=== PATIENT | female | born 1960 | race Caucasian/White ===

== ENCOUNTER 2017-05-05 22:42 | Inpatient (IN) | payer OTHER ==
[~2017-05-05] VITALS: Ht 160 cm; Wt 51.3 kg
[~2017-05-05 22:42] MED LIST: ACET325T96 PO; ALBUAER2 INH; CLON0.5T3 PO; CYAN3INJ IM; FRRS300 PO; GLUCTAB7 PO; IPRA1AER2 INH; MULTTAB58 PO; OMEGCAP2 PO; ONDA8TAB6 PO; PANT40TA PO; SERT-234 PO; SNQ/25 PO; TRAM-10 PO; ZOLE5INJ
--- NOTE | 2017-05-05 23:20 | EMERGENCY ROOM VISIT NOTE ---
History Report prepared by Lobito: Britt Rogers Under the Supervision of: Dr. Daniele Barrera M.D. First contact with patient: 22:58 Chief Complaint: WEAKNESS Stated Complaint: WEAKNESS,BRUISING,LIGHT-HEADED,HEADACHE,ANEMIA History of Present Illness The patient is a 57 year old female who presents to the Emergency Room with complaints of worsening weakness starting two weeks ago. The patient reports that in the past she has had extremely low hemoglobin that required blood transfusions and iron transfusions. She complains of chills, loss appetite, shortness of breath, and a headache. The patient denies fevers, hematochezia, melena, urinary symptoms, and recent falls or injuries. She notes that they are unsure why her hemoglobin is so low. She currently rates her pain as a 5/10 in severity. Source of History: patient Onset: two weeks ago Position: other (global) Symptom Intensity: 5/10 Quality: other (global) Timing: worsening Associated Symptoms: + chills, + headache, + SOB, No fevers, No melena, No hematochezia, No urinary symptoms Note: The patient complains of loss of appetite. The patient denies any recent falls or injuries. Review of Systems See HPI for pertinent positives & negatives. A total of 10 systems reviewed and were otherwise negative. Past Medical & Surgical Medical Problems: (1) Anxiety (2) BODY MASS INDEX LESS THAN 19, ADULT (3) CHR BLOOD LOSS ANEMIA (4) CHR PEPTIC ULC W HEM-OBS (5) COPD (chronic obstructive pulmonary disease) (6) Depression (7) Gastrostomy (8) jejunostomy (9) OBSTRUCTIVE CHRONIC BRONCHITIS WITH ACUTE BRONCHITIS (10) PNEUMONIA, ORGANISM NOS Family History Patient reports no known family medical history. Social History Smoking Status: Current Every Day Smoker Alcohol Use: none Drug Use: none Marital Status: Housing Status: lives alone Occupation Status: employed Current/Historical Medications Scheduled Albuterol Hfa (Ventolin Hfa), 2-4 PUFFS INH Q6H Vevjmuilgtj-Kaurtqswync-Uwv C- (Glucosamine Chondroitin), 500 MG PO DAILY Ipratropium-Albuterol (Combivent Respimat), 1 PUFFS INH QID Multiple Vitamin (Multivitamin), 1 TAB PO DAILY [place]-3 Fatty Acids (Fish Oil), 1 CAP PO DAILY Scheduled PRN Acetaminophen Tab (Tylenol), 650 MG PO Q6 PRN for Pain Tramadol (Ultram), 50 MG PO TID PRN for Pain Allergies Coded Allergies: Ibuprofen (Verified Allergy, Severe, stomach ulcers, 05/06/17) Physical Exam Vital Signs Date Time Temp Pulse Resp B/P (MAP) Pulse Ox O2 Delivery O2 Flow Rate FiO2 05/06/17 00:42 36.7 97 20 160/95 98 05/06/17 00:30 98 16 167/86 98 05/05/17 23:36 98 05/05/17 23:32 99 16 178/87 99 Room Air 05/05/17 22:49 36.5 115 20 168/61 100 Room Air Physical Exam GENERAL: Patient is chronically unwell appearing. She appears pale and cachectic. The patient is minimal distress. HEENT: No acute trauma, normocephalic atraumatic, mucous membranes moist, no nasal congestion, no scleral icterus. Pale conjunctiva. NECK: No stridor, no adenopathy, no meningismus, trachea is midline. LUNGS: No dyspnea. Clear to auscultation and equal bilaterally. No wheeze, no rhonchi. HEART: Tachycardic rate and regular rhythm. No murmurs, rubs, gallops appreciated. ABDOMEN: Soft, nontender, bowel sounds positive, no masses appreciated, no peritonitis. BACK: No midline tenderness, no CVA tenderness EXTREMITIES: Normal motion all extremities, no cyanosis, no edema. Mild superficial bruising of the arms. NEUROLOGIC: Alert and oriented, no acute motor or sensory deficits, no focal weakness, cranial nerves grossly intact. SKIN: No rash, no jaundice, no diaphoresis. Bruising bilaterally on buttocks. Medical Decision & Procedures Laboratory Results 05/05/17 23:10 Red Blood Count 2.37, Mean Corpuscular Volume 79.3, Mean Corpuscular Hemoglobin 21.9, Mean Corpuscular Hemoglobin Concent 27.7, Mean Platelet Volume 8.8, Neutrophils (%) (Auto) 69.8, Lymphocytes (%) (Auto) 16.7, Monocytes (%) (Auto) 11.6, Eosinophils (%) (Auto) 0.7, Basophils (%) (Auto) 1.1, Neutrophils # (Auto ) 4.98, Lymphocytes # (Auto) 1.19, Monocytes # (Auto) 0.83, Eosinophils # (Auto ) 0.05, Basophils # (Auto) 0.08 05/05/17 23:10 Test 05/05/17 23:10 05/05/17 23:18 05/06/17 00:48 White Blood Count 7.14 K/uL (4.8-10.8) Red Blood Count 2.37 M/uL (4.2-5.4) Hemoglobin 5.2 g/dL (12.0-16.0) Hematocrit 18.8 % (37-47) Mean Corpuscular Volume 79.3 fL (80-100) Mean Corpuscular Hemoglobin 21.9 pg (25-34) Mean Corpuscular Hemoglobin Concent 27.7 g/dl (32-36) Platelet Count 656 K/uL (130-400) Mean Platelet Volume 8.8 fL (7.4-10.4) Neutrophils (%) (Auto) 69.8 % Lymphocytes (%) (Auto) 16.7 % Monocytes (%) (Auto) 11.6 % Eosinophils (%) (Auto) 0.7 % Basophils (%) (Auto) 1.1 % Neutrophils # (Auto) 4.98 K/uL (1.4-6.5) Lymphocytes # (Auto) 1.19 K/uL (1.2-3.4) Monocytes # (Auto) 0.83 K/uL (0.11-0.59) Eosinophils # (Auto) 0.05 K/uL (0-0.5) Basophils # (Auto) 0.08 K/uL (0-0.2) RDW Standard Deviation 81.7 fL (36.4-46.3) RDW Coefficient of Variation 29.1 % (11.5-14.5) Immature Granulocyte % (Auto) 0.1 % Immature Granulocyte # (Auto) 0.01 K/uL (0.00-0.02) Nucleated RBC Absolute Count (auto) 0.15 K/uL (0-0) Nucleated Red Blood Cells % 2.1 % Hypersegmented Polys 2+ Hypochromasia PRESENT Anisocytosis PRESENT Tear Drop Cells 1+ Ovalocytes 1+ Prothrombin Time 11.9 SECONDS (9.0-12.0) Prothromb Time International Ratio 1.1 (0.9-1.1) Activated Partial Thromboplast Time 26.7 SECONDS (21.0-31.0) Partial Thromboplastin Ratio 1.0 Est Creatinine Clear Calc Drug Dose 46.0 ml/min Estimated GFR () 65.5 Estimated GFR (Non- 56.5 BUN/Creatinine Ratio 15.3 (10-20) Calcium Level 8.9 mg/dl (8.5-10.1) Magnesium Level 2.1 mg/dl (1.8-2.4) Total Bilirubin 0.3 mg/dl (0.2-1) Direct Bilirubin 0.1 mg/dl (0-0.2) Aspartate Amino Transf (AST/SGOT) 19 U/L (15-37) Alanine Aminotransferase (ALT/SGPT) 18 U/L (12-78) Alkaline Phosphatase 101 U/L (45-117) Troponin I < 0.015 ng/ml (0-0.045) Total Protein 8.5 gm/dl (6.4-8.2) Albumin 4.5 gm/dl (3.4-5.0) Thyroid Stimulating Hormone (TSH) 0.484 uIu/ml (0.300-4.500) Bedside Hemoglobin 7.1 g/dl (12.0-16.0) Bedside Hematocrit 21 % (37-47) Bedside Sodium 138 mEq/L (135-144) Bedside Potassium 3.6 mEq/L (3.3-5.0) Bedside Chloride 112 mEq/L (101-112) Bedside Total CO2 14 mEq/l (24-31) Anion Gap 17.0 mmol/L (16-25) Bedside Blood Urea Nitrogen 16 mg/dl (7-18) Bedside Creatinine 1.2 mg/dl (0.6-1.3) Bedside Glucose (other) 108 mg/dl (70-99) Bedside Ionized Calcium (Jam) 1.22 mmol/l (1.12-1.32) Laboratory results as reviewed by me. Medications Administered Medications (Trade) Dose Ordered Sig/Shelly Route Start Time Stop Time Status Last Admin Dose Admin Acetaminophen (Tylenol Tab) 1,000 mg NOW STAT PO 05/06/17 00:21 05/06/17 00:22 DC 05/06/17 00:32 1,000 MG Procedure RECTAL EXAM: Brown, hem negative regular stool upon exam. ECG Indication: weakness Rate (beats per minute): 97 Rhythm: sinus tachycardia Findings: nonspecific-ST abn, no ectopy, other (no STEMI, QTc 452) ED Course 225: The patient was evaluated in room B10. A complete history and physical exam was performed. 2338: Ordered Pantoprazole Sodium 1 ea IV. 2340: I performed a rectal exam and reevaluated the patient. She is okay. I discussed the need to be further evaluated and she agrees. 2350: Discussed the patient's case with Dr. Quinn. The patient will be evaluated for further treatment and disposition. Medical Decision Differential: Sepsis, Infectious (UTI/Pneumonia/Meningitis/etc), Metabolic/ Electrolyte Abnormality, Cardiac, Hepatic, Endocrine, Toxicologic, Neurologic, amongst other pathologies entertained. 57 yr old female with history of severe PUD with extensive gastric/small bowel resection several years ago arrives with complaint of generalized weakness over the last few weeks. Tachycardic and unwell appearing though in no severe distress. EKG without acute ischemia and Trop looking OK. She is severely anemic and with tachycardia and weakness I felt emergent transfusion necessary thus 2 U PRBC ordered. Bicarb significantly low without clear reason though may just be from anemia. VBG ordered and pending when signed over to hospitalist team. BG OK and otherwise no clear evidence of infection. Headache which she notes is chronic. Bedside Hemoccult is negative for blood thus will hold on Protonix which was initially ordered given her history. This may all be vitamin/iron deficiency. She has no peritonitis nor other places of bleeding evidence. Medication Reconcilliation Current Medication List: was personally reviewed by sc Blood Pressure Screening Patient's blood pressure: Elevated blood pressure Hypertension will be managed by a hospitalist. Consults Time Called: [phone] Consulting Physician: Dr. Quinn Returned Call: [phone] Discussed the patient's case with Dr. Quinn. The patient will be evaluated for further treatment and disposition. Impression Primary Impression: Anemia Critical Care I have personally spent greater than 35 minutes of critical care time in the direct management of this patient. This was a life/limb threatening event. This includes time spent evaluating patient, direct bedside care, chart review, placing orders, interpretation of diagnostic studies, discussion with consultants, patient, and family members, as well as other required patient management activities. This 35 minutes is in excess of all separately billable procedures. Scribe Attestation The scribe's documentation has been prepared under my direction and personally reviewed by me in its entirety. I confirm that the note above accurately reflects all work, treatment, procedures, and medical decision making performed by me. Departure Information Dispostion Being Evaluated By Hospitalist Prescriptions Ipratropium-Albuterol (COMBIVENT RESPIMAT) 1 Aer Aer 1 PUFFS INH QID, #1 INH Prov: Werner Fairchild MD 05/06/17 Albuterol Hfa (VENTOLIN HFA) 200 Puffs/17242 Mcg Aers 2-4 PUFFS INH Q6H, #1 INHALER Prov: Werner Fairchild MD 05/06/17 Referrals No Doctor, Assigned (PCP) Patient Instructions My [facility]
[2017-05-05 23:32] LABS: ISTAT CREATININE 1.2 mg/dl (0.6-1.3); ISTAT HEMOGLOBIN 7.1 g/dl (12.0-16.0); ISTAT IONIZED CALCIUM 1.22 mmol/l (1.12-1.32)
[2017-05-05 23:37] LABS: INR 1.1 (0.9-1.1); PROTHROMBIN TIME (PATIENT) 11.9 SECONDS (9.0-12.0)
[2017-05-05 23:39] LABS: HEMATOCRIT 18.8 % (37-47); MEAN CELL VOLUME 79.3 fL (80-100); MEAN CORPUSCULAR HEMOGLOBIN 21.9 pg (25-34); MEAN CORPUSCULAR HGB CONC 27.7 g/dl (32-36); PLATELET COUNT 656 K/uL (130-400); RED BLOOD COUNT 2.37 M/uL (4.2-5.4); WHITE BLOOD COUNT 7.14 K/uL (4.8-10.8)
[2017-05-05 23:50] LABS: ALT/SGPT 18 U/L (12-78); BLOOD UREA NITROGEN 17 mg/dl (7-18); BUN/CREATININE RATIO 15.3 (10-20); CALCIUM 8.9 mg/dl (8.5-10.1); CARBON DIOXIDE 15 mmol/L (21-32); CHLORIDE 109 mmol/L (98-107); GLUCOSE 106 mg/dl (70-99); MAGNESIUM 2.1 mg/dl (1.8-2.4); POTASSIUM 3.5 mmol/L (3.5-5.1); SODIUM 138 mmol/L (136-145)
[2017-05-06] VITALS (24 sets, daily range): BP systolic 119–184; BP diastolic 57–95; PULSE 82–97; TEMP 36.4–37; O2SAT 95–100; Ht 160 cm; Wt 51.3 kg
[2017-05-06 00:01] LABS: ALKALINE PHOSPHATASE 101 U/L (45-117); AST/SGOT 19 U/L (15-37); THYROID STIMULATING HORMONE 0.484 uIu/ml (0.300-4.500)
[2017-05-06 00:04] LABS: MEAN PLATELET VOLUME 8.8 fL (7.4-10.4)
[2017-05-06 00:07] LABS: ANISOCYTOSIS PRESENT; BASO % 1.1 %; BASO ABS # 0.08 K/uL (0-0.2); COMPLETE YES; EOS % 0.7 %; HYPERSEGMENTED POLYS 2+; HYPOCHROMIA PRESENT; IG% 0.1 %; LYMPH % 16.7 %; LYMPH ABS # 1.19 K/uL (1.2-3.4); MONO % 11.6 %; NEUT % 69.8 %; OVALOCYTES 1+; TEAR DROP CELLS 1+
[2017-05-06] MEDS ORDERED: ACETAMINOPHEN 500 MG TAB PO STA (00:21)
[2017-05-06] MEDS ORDERED: VNTHFA/IN INH (00:27)
[2017-05-06] MEDS ORDERED: IPRA1AER2 INH (00:27)
--- NOTE | 2017-05-06 00:31 | History and Physical ---
History & Physical Date & Time of Service: May 06, 2017 at 00:17 Chief Complaint: Weakness,Bruising,Light-Headed,Headache,Anemia Primary Care Physician: No Doctor, Assigned History of Present Illness Source: patient The patient is a 57 year old female with a history of partial gastrectomy who presents with weakness and generalized malaise x 1 month. The patient notes that for the past 1 month, she has been walking1 mile to work and needs to stop 4 times to catch her breath. Prior to 1 month ago, she tolerated this walk without difficulty. Symptoms are progressively getting worse. Feels weak, she notes that she bruises easily. No falls or syncope. Patient also states that she has had a poor appetite and nausea. Has had occasional vomiting. The patient states that she has a headache but otherwise denies any pain elsewhere. She denies palpitations, wheezing or coughing. Patient had a gastric bypass surgery 5 years ago at [facility] (Dr. Katz) due to extensive gastric ulceration. Notes that since then she has had persistent hemoglobin issues and states that she feels when her hemoglobin is low. The patient states that she had tried iron infusions with Dr. Mitchell 2 years ago, which she states kept her symptoms at bay. She stopped because she lived far from infusion centre and logistically was difficult to do. States that she does not take iron tablets because they make her constipated. Nutritionally, the patient states that she eats minimal red meat. She denies any rectal bleeding. She denies blood in her urine. No hemoptysis or hematemesis. She denies abdominal or back pain. She denies fevers, chills or nightsweats. Past Medical/Surgical History Medical Problems: (1) Anxiety Status: Chronic (2) BODY MASS INDEX LESS THAN 19, ADULT Status: Chronic (3) CHR BLOOD LOSS ANEMIA Status: Chronic (4) CHR PEPTIC ULC W HEM-OBS Status: Resolved (5) Depression Status: Chronic (6) Gastrostomy Status: Resolved (7) jejunostomy Status: Resolved (8) OBSTRUCTIVE CHRONIC BRONCHITIS WITH ACUTE BRONCHITIS Status: Chronic (9) PNEUMONIA, ORGANISM NOS Status: Resolved Family History Patient reports no known family medical history. Social History Smoking Status: Current Every Day Smoker Smokeless Tobacco Use: No Alcohol Use: none Drug Use: none Marital Status: Housing status: lives alone Occupational Status: employed Immunizations History of Influenza Vaccine: Yes History of Tetanus Vaccine?: No History of Pneumococcal: Yes Pneumococcal Date: Nov 06, 2012 History of Hepatitis B Vaccine: No Multi-Drug Resistant Organisms History of MDRO: No Allergies Coded Allergies: Ibuprofen (Verified Allergy, Severe, stomach ulcers, 05/06/17) Home Medications Scheduled Albuterol Hfa (Ventolin Hfa), 2-4 PUFFS INH Q6H Jywyqlrjvvz-Yuleeipijea-Ztf C- (Glucosamine Chondroitin), 500 MG PO DAILY Ipratropium-Albuterol (Combivent Respimat), 1 PUFFS INH QID Multiple Vitamin (Multivitamin), 1 TAB PO DAILY [place]-3 Fatty Acids (Fish Oil), 1 CAP PO DAILY Scheduled PRN Acetaminophen Tab (Tylenol), 650 MG PO Q6 PRN for Pain Tramadol (Ultram), 50 MG PO TID PRN for Pain Review of Systems A 10 point review of systems was negative unless stated above. Physical Exam Vital Signs Date Time Temp Pulse Resp B/P (MAP) Pulse Ox O2 Delivery O2 Flow Rate FiO2 05/05/17 23:36 98 05/05/17 23:32 99 16 178/87 99 Room Air 05/05/17 22:49 36.5 115 20 168/61 100 Room Air General Appearance: WD/WN, no apparent distress, + thin Head: normocephalic, atraumatic Eyes: normal inspection, EOMI ENT: hearing grossly normal, pharynx normal, + pertinent finding (poor dentition) Neck: supple, no adenopathy, no JVD Respiratory/Chest: lungs clear, no respiratory distress Cardiovascular: no gallop, no murmur, + tachycardia Abdomen/GI: normal bowel sounds, non tender, soft, + pertinent finding (well healed gastrectomy scar) Back: no CVA tenderness, no muscle spasm Extremities/Musculoskelatal: no calf tenderness, no pedal edema Neurologic/Psych: alert, normal mood/affect, oriented x 3 Skin: normal color, warm/dry, no rash Lymphatic: no adenopathy Diagnostics Laboratory Results Results Past 24 Hours Test 05/05/17 23:10 05/05/17 23:18 05/06/17 00:02 Range/Units White Blood Count 7.14 4.8-10.8 K/uL Red Blood Count 2.37 4.2-5.4 M/uL Hemoglobin 5.2 12.0-16.0 g/dL Hematocrit 18.8 37-47 % Mean Corpuscular Volume 79.3 80-100 fL Mean Corpuscular Hemoglobin 21.9 25-34 pg Mean Corpuscular Hemoglobin Concent 27.7 32-36 g/dl Platelet Count 656 130-400 K/uL Mean Platelet Volume 8.8 7.4-10.4 fL Neutrophils (%) (Auto) 69.8 % Lymphocytes (%) (Auto) 16.7 % Monocytes (%) (Auto) 11.6 % Eosinophils (%) (Auto) 0.7 % Basophils (%) (Auto) 1.1 % Neutrophils # (Auto) 4.98 1.4-6.5 K/uL Lymphocytes # (Auto) 1.19 1.2-3.4 K/uL Monocytes # (Auto) 0.83 0.11-0.59 K/uL Eosinophils # (Auto) 0.05 0-0.5 K/uL Basophils # (Auto) 0.08 0-0.2 K/uL RDW Standard Deviation 81.7 36.4-46.3 fL RDW Coefficient of Variation 29.1 11.5-14.5 % Immature Granulocyte % (Auto) 0.1 % Immature Granulocyte # (Auto) 0.01 0.00-0.02 K/uL Nucleated RBC Absolute Count (auto) 0.15 0-0 K/uL Nucleated Red Blood Cells % 2.1 % Hypersegmented Polys 2+ Hypochromasia PRESENT Anisocytosis PRESENT Tear Drop Cells 1+ Ovalocytes 1+ Prothrombin Time 11.9 9.0-12.0 SECONDS Prothromb Time International Ratio 1.1 0.9-1.1 Activated Partial Thromboplast Time 26.7 21.0-31.0 SECONDS Partial Thromboplastin Ratio 1.0 Sodium Level 138 136-145 mmol/L Potassium Level 3.5 3.5-5.1 mmol/L Chloride Level 109 98-107 mmol/L Carbon Dioxide Level 15 21-32 mmol/L Anion Gap 14.0 17.0 16-25 mmol/L Blood Urea Nitrogen 17 7-18 mg/dl Creatinine 1.10 0.60-1.20 mg/dl Est Creatinine Clear Calc Drug Dose 46.0 ml/min Estimated GFR () 65.5 Estimated GFR (Non- 56.5 BUN/Creatinine Ratio 15.3 10-20 Random Glucose 106 70-99 mg/dl Calcium Level 8.9 8.5-10.1 mg/dl Magnesium Level 2.1 1.8-2.4 mg/dl Total Bilirubin 0.3 0.2-1 mg/dl Direct Bilirubin 0.1 0-0.2 mg/dl Aspartate Amino Transf (AST/SGOT) 19 15-37 U/L Alanine Aminotransferase (ALT/SGPT) 18 12-78 U/L Alkaline Phosphatase 101 45-117 U/L Troponin I < 0.015 0-0.045 ng/ml Total Protein 8.5 6.4-8.2 gm/dl Albumin 4.5 3.4-5.0 gm/dl Thyroid Stimulating Hormone (TSH) 0.484 0.300-4.500 uIu/ml Bedside Hemoglobin 7.1 12.0-16.0 g/dl Bedside Hematocrit 21 37-47 % Bedside Sodium 138 135-144 mEq/L Bedside Potassium 3.6 3.3-5.0 mEq/L Bedside Chloride 112 101-112 mEq/L Bedside Total CO2 14 24-31 mEq/l Bedside Blood Urea Nitrogen 16 7-18 mg/dl Bedside Creatinine 1.2 0.6-1.3 mg/dl Bedside Glucose (other) 108 70-99 mg/dl Bedside Ionized Calcium (Jam) 1.22 1.12-1.32 mmol/l Impression Assessment and Plan 57 year old female with profound anemia on a background of gastrectomy and history of iron deficiency anemia, previously on iron infusions. Hemoccult in the ER was negative. She has no focal sources of bleeding based on history and examination. Plan is as follows: Microcytic Anemia - Suspect 2/2 low iron Repeat iron studies Will start empiric PO iron supplementation TID - Consult Heme/Onc for recommendations on need to IV iron infusions - Will also check B12 and Folic acid levels given history of low meat intake - Hemoccult negative; focal history of bleeding source - Normal bilirubin; hemolysis unlikely - 1 unit transfusing now; repeat CBC after transfusion Trend CBC q 6 hours x 2 ; further monitoring at discretion of day team COPD - Continue Ventolin PRN - Combivent QID History of Gastrectomy - Low residue diet - No NSAIDs DVT prophylaxis - SCD, GREGORY - Pharmacological anticoagulation contra-indicated due to low hemoglobin Code Status - Level I Full Code Disposition - Telemetry Resident Physician Supervision Note: I was present with Dr. Johnson during the history and exam. I discussed the case with the resident and agree with the findings and plan as documented in the note. Any exceptions or clarifications are listed here: 57 y/o F Hx gastric bypass - presents with weakness and light-headedness Pt is guiac- on admission and does not report blood loss - marked anemia on initial labs OE AAO x 3 S1,2 R CTAB NT, ND P: Deficiencies suspected to be nutritional related to malabsorption - she has been noncompliant with iron Transfused - consider D/C if stable and deficiencies confirmed Documented By: Enzo Quinn Level of Care Telemetry Resuscitation Status FULL RESUSCITATION VTE Prophylaxis Given or contraindicated: Contraindicated
[2017-05-06] MEDS ORDERED: ALUMINUM/MAGNESIUM/SIMETH (MAALOX MAX) 30 ML UDC PO PRN (00:45)
[2017-05-06] MEDS ORDERED: ONDANSETRON INJ 2 MG/ML 2 ML VIAL IV PRN (00:45)
[2017-05-06] MEDS ORDERED: POLYETHYLENE (MIRALAX) 17 GM PACK PO PRN (00:45)
[2017-05-06] MEDS ORDERED: ACETAMINOPHEN 325 MG TAB PO PRN (00:45)
[2017-05-06] MEDS ORDERED: MAGNESIUM HYDROXIDE SUSP 30 ML UDC PO PRN (00:45)
[2017-05-06] MEDS ORDERED: ALBUTEROL HFA 8 GM INHALER INH PRN (00:45)
[2017-05-06] MEDS ORDERED: FERROUS SULFATE 325 MG TAB PO ONE (01:01)
[2017-05-06] MEDS ORDERED: NICOTINE 14 MG/24 HR TDSY TD ONE (01:05)
[2017-05-06 01:50] LABS: FERRITIN 2.3 ng/ml (8.0-388.0); TOTAL IRON BINDING CAPACITY 688 mcg/dl (250-450)
[2017-05-06 01:54] LABS: VENOUS BLOOD GAS PCO2 26 mmHg (38.0-50.0); VENOUS BLOOD GAS PO2 59 mmHg
[2017-05-06] MEDS: TRAMADOL HCL 50 MG TAB PO PRN ×2 (02:19→09:34)
[2017-05-06] MEDS: ACETAMINOPHEN 325 MG TAB PO PRN ×2 (06:06→14:00)
--- NOTE | 2017-05-06 08:05 | Oncology Consultation ---
Oncology/Heme Consultation Date of Consultation: May 06, 2017. Attending Physician: Enzo Quinn M.D. Reason for Consultation: Microcytic anemia History of Present Illness Loly is a pleasant 57-year-old female patient who was admitted yesterday because of progressive fatigue and associated shortness of breath. She admits her symptoms have been present for at least 7 weeks. She apparently walks to work and over the past several weeks has noticed decreased exercise tolerance needing to stop multiple times during her journey. She admits her symptoms have been getting progressively worse manifested by fatigue and weakness. She denies any syncopal episodes or subsequent falls. Apparently Loly underwent a partial gastrectomy several years ago because of peptic ulcer disease. She notes that since her operative procedure she has had issues with anemia. In fact Loly had previous relationship with Dr. Karthikeyan Mitchell who had been administering intravenous iron supplementation but she quit coming because of the inconvenience. She takes multivitamin however has not been on oral iron supplementation. She presents with hemoglobin in the 5 g/dL range has received transfused packed RBCs upon admission. Past Medical/Surgical History Medical Problems: (1) Anemia Status: Acute Family History Patient reports no known family medical history. Essentially negative Social History Current every day smoker, , was independently, works full-time. Denies alcohol or illicit drugs. Smoking Status: Current Every Day Smoker Smokeless Tobacco Use: No Alcohol Use: none Drug Use: none Marital Status: Housing Status: lives alone Occupation Status: employed Allergies Coded Allergies: Ibuprofen (Verified Allergy, Severe, stomach ulcers, 05/06/17) Home Medications Scheduled Albuterol Hfa (Ventolin Hfa), 2-4 PUFFS INH Q6H Snfiyxyyvkg-Jxlrfejjbbv-Zid C- (Glucosamine Chondroitin), 500 MG PO DAILY Ipratropium-Albuterol (Combivent Respimat), 1 PUFFS INH QID Multiple Vitamin (Multivitamin), 1 TAB PO DAILY [place]-3 Fatty Acids (Fish Oil), 1 CAP PO DAILY Scheduled PRN Acetaminophen Tab (Tylenol), 650 MG PO Q6 PRN for Pain Tramadol (Ultram), 50 MG PO TID PRN for Pain Current Inpatient Medications Current Inpatient Medications Medications (Trade) Dose Ordered Sig/Shelly Route Start Time Stop Time Status Last Admin Dose Admin Acetaminophen (Tylenol Tab) 650 mg Q4H PRN PO 05/06/17 00:45 06/05/17 00:44 05/06/17 06:06 650 MG Al Hydrox/Mg Hydrox/Simethicone (Maalox Max Susp) 15 ml Q4H PRN PO 05/06/17 00:45 06/05/17 00:44 Magnesium Hydroxide (Milk Of Magnesia Susp) 30 ml Q12H PRN PO 05/06/17 00:45 06/05/17 00:44 Ondansetron HCl (Zofran Inj) 4 mg Q6H PRN IV 05/06/17 00:45 06/05/17 00:44 Polyethylene (Miralax Powder Packet) 17 gm DAILY PRN PO 05/06/17 00:45 06/05/17 00:44 Albuterol (Ventolin Hfa Inhaler) 2 puffs Q6H PRN INH 05/06/17 00:45 06/05/17 00:44 Albuterol/ Ipratropium (Combivent Respimat Inh) 1 puffs QID INH 05/06/17 09:00 06/05/17 08:59 Multivitamins (Multivitamin Tab) 1 tab DAILY PO 05/06/17 09:00 06/05/17 08:59 Tramadol HCl (Ultram Tab) 50 mg TID PRN PO 05/06/17 00:45 06/05/17 00:44 05/06/17 02:19 50 MG Fish Oil ([place]-3 (Purified Fish Oil) Cap) 1 gm DAILY PO 05/06/17 09:00 06/05/17 08:59 Ferrous Sulfate (Feosol Tab) 325 mg TIDM PO 05/06/17 07:30 06/05/17 07:59 Nicotine (Nicoderm Cq 14MG Patch) 1 patch QAM TD 05/06/17 09:00 06/05/17 08:59 Miscellaneous (Remove Nicoderm Patch) 1 ea HS N/A 05/06/17 21:00 06/05/17 20:59 Review of Systems Constitutional: + fatigue Eyes: No worsening of vision, No eye pain, No redness, No discharge, No diplopia, No problem reported ENT: No hearing loss, No unusual epistaxis, No nasal symptoms, No sore throat, No tinnitus, No dental problems, No trouble swallowing, No problem reported Respiratory: + problem reported (positive for shortness of breath and dyspnea on exertion.) Cardiovascular: No chest pain, No orthopnea, No PND, No edema, No claudication , No palpitations, No problem reported Abdomen: + problem reported (prior gastrectomy) Musculoskeletal: No joint pain, No muscle pain, No swelling, No calf pain, No problem reported Neurologic: No memory loss, No paralysis, No weakness, No numbness/tingling, No vertigo, No balance problems, No problem reported Psychiatric: No depression symptoms, No anhedonism, No anxiety, No insomnia, No substance abuse, No problem reported Endocrine: No fatigue, No excessive thirst, No excessive urination, No problem reported Hematologic / Lymphatic: + problem reported (positive for microcytic anemia.) Physical Exam Date Time Temp Pulse Resp B/P (MAP) Pulse Ox O2 Delivery O2 Flow Rate FiO2 05/06/17 07:29 36.8 84 18 119/64 (82) 98 Room Air 05/06/17 05:55 36.7 83 20 164/80 98 05/06/17 04:02 36.8 82 18 172/78 98 05/06/17 04:00 100 Room Air 05/06/17 03:32 36.7 85 16 175/83 100 05/06/17 03:08 36.8 89 20 184/72 100 05/06/17 02:15 36.4 91 18 172/74 100 05/06/17 01:35 36.9 92 18 171/69 99 Room Air 05/06/17 01:11 36.8 93 20 157/87 98 05/06/17 00:56 36.9 96 20 141/77 98 05/06/17 00:42 36.7 97 20 160/95 98 05/06/17 00:30 98 16 167/86 98 05/05/17 23:36 98 05/05/17 23:32 99 16 178/87 99 Room Air 05/05/17 22:49 36.5 115 20 168/61 100 Room Air General Appearance: WD/WN, no apparent distress Head: normocephalic, atraumatic Eyes: normal inspection ENT: normal ENT inspection Neck: supple, no adenopathy Respiratory/Chest: chest non-tender, lungs clear, normal breath sounds Cardiovascular: regular rate, rhythm, no edema, no gallop Abdomen/GI: normal bowel sounds, non tender, soft (surgical wound midline from the xiphoid to the umbilicus. Well-healed) Back: normal inspection Extremities/Musculoskelatal: no calf tenderness, normal capillary refill, no pedal edema Neurologic/Psych: pediatric dentist II-XII nml as tested Skin: normal color, warm/dry, no rash Lymphatic: no adenopathy Laboratory Results Last 24 Hours Test 05/05/17 23:10 05/05/17 23:18 05/06/17 00:48 05/06/17 00:57 White Blood Count 7.14 K/uL Red Blood Count 2.37 M/uL Hemoglobin 5.2 g/dL Hematocrit 18.8 % Mean Corpuscular Volume 79.3 fL Mean Corpuscular Hemoglobin 21.9 pg Mean Corpuscular Hemoglobin Concent 27.7 g/dl Platelet Count 656 K/uL Mean Platelet Volume 8.8 fL Neutrophils (%) (Auto) 69.8 % Lymphocytes (%) (Auto) 16.7 % Monocytes (%) (Auto) 11.6 % Eosinophils (%) (Auto) 0.7 % Basophils (%) (Auto) 1.1 % Neutrophils # (Auto) 4.98 K/uL Lymphocytes # (Auto) 1.19 K/uL Monocytes # (Auto) 0.83 K/uL Eosinophils # (Auto) 0.05 K/uL Basophils # (Auto) 0.08 K/uL RDW Standard Deviation 81.7 fL RDW Coefficient of Variation 29.1 % Immature Granulocyte % (Auto) 0.1 % Immature Granulocyte # (Auto) 0.01 K/uL Nucleated RBC Absolute Count (auto) 0.15 K/uL Nucleated Red Blood Cells % 2.1 % Hypersegmented Polys 2+ Hypochromasia PRESENT Anisocytosis PRESENT Tear Drop Cells 1+ Ovalocytes 1+ Absolute Reticulocyte Count 0.06 10^6/uL Percent Reticulocyte Count 2.6 % Prothrombin Time 11.9 SECONDS Prothromb Time International Ratio 1.1 Activated Partial Thromboplast Time 26.7 SECONDS Partial Thromboplastin Ratio 1.0 Sodium Level 138 mmol/L Potassium Level 3.5 mmol/L Chloride Level 109 mmol/L Carbon Dioxide Level 15 mmol/L Anion Gap 14.0 mmol/L 17.0 mmol/L Blood Urea Nitrogen 17 mg/dl Creatinine 1.10 mg/dl Est Creatinine Clear Calc Drug Dose 46.0 ml/min Estimated GFR () 65.5 Estimated GFR (Non- 56.5 BUN/Creatinine Ratio 15.3 Random Glucose 106 mg/dl Calcium Level 8.9 mg/dl Magnesium Level 2.1 mg/dl Iron Level 11 mcg/dl Total Iron Binding Capacity 688 mcg/dl Transferrin 518 mg/dl Transferrin % Saturation 2 % % Ferritin 2.3 ng/ml Total Bilirubin 0.3 mg/dl Direct Bilirubin 0.1 mg/dl Aspartate Amino Transf (AST/SGOT) 19 U/L Alanine Aminotransferase (ALT/SGPT) 18 U/L Alkaline Phosphatase 101 U/L Troponin I < 0.015 ng/ml Total Protein 8.5 gm/dl Albumin 4.5 gm/dl Thyroid Stimulating Hormone (TSH) 0.484 uIu/ml Bedside Hemoglobin 7.1 g/dl Bedside Hematocrit 21 % Bedside Sodium 138 mEq/L Bedside Potassium 3.6 mEq/L Bedside Chloride 112 mEq/L Bedside Total CO2 14 mEq/l Bedside Blood Urea Nitrogen 16 mg/dl Bedside Creatinine 1.2 mg/dl Bedside Glucose (other) 108 mg/dl Bedside Ionized Calcium (Jam) 1.22 mmol/l Vitamin B12 Level 610 pg/mL Folate > 24.00 ng/mL Test 05/06/17 01:05 05/06/17 07:47 Venous Blood pH 7.34 Venous Blood Partial Pressure CO2 26 mmHg Venous Blood Partial Pressure O2 59 mmHg Venous Blood HCO3 14 mmol/L Venous Blood Oxygen Saturation % Venous Blood Base Excess mEq/L Assessment & Plan #1 microcytic anemia. #2 fatigue and decreased exercise tolerance secondary to #1 #3 peptic ulcer disease. #4 status post partial gastrectomy #5 COPD In summary, Loly is a pleasant 57-year-old female patient previously a [facility] under the care of Dr. Karthikeyan Mitchell for iron deficiency anemia. Her symptoms and clinical course are summarized in history of present illness. Over the past several weeks had developed fatigue and decreased exercise tolerance as well as dyspnea on exertion. She presented to the emergency room and was admitted on 05/05/2017. Initial labs clearly demonstrates a microcytic anemia with remainder of her peripheral counts otherwise unremarkable with the exception of reactive thrombocytosis which is commonly seen in the setting of iron deficiency. She underwent partial gastrectomy about 5 years prior to correct peptic ulcer disease. Clearly she is lost a portion of her stomach which absorbs critical elements such as iron and possibly B-12. Iron studies and B12 level is currently pending. Agree with transfusional support as a temporizing measure. Reiterated to Loly she needs to follow with a circuit judge somewhere despite the inconvenience as she will require regular intravenous iron further remainder of her life. I would prefer to have her discharged and scheduled as outpatient. If you have any questions or concerns feel free to contact me at any time. Thank you very much for allowing me to participate in her care and we'll make arrangements for outpatient IV iron therapy.
[2017-05-06 08:33] LABS: BUN/CREATININE RATIO 14.9 (10-20); CALCIUM 8.7 mg/dl (8.5-10.1); CREATININE 0.72 mg/dl (0.60-1.20); POTASSIUM 3.6 mmol/L (3.5-5.1)
[2017-05-06 08:57] LABS: HEMATOCRIT 26.3 % (37-47); MEAN CELL VOLUME 80.7 fL (80-100); MEAN CORPUSCULAR HEMOGLOBIN 25.2 pg (25-34); MEAN CORPUSCULAR HGB CONC 31.2 g/dl (32-36); PLATELET COUNT 524 K/uL (130-400); RED BLOOD COUNT 3.26 M/uL (4.2-5.4); WHITE BLOOD COUNT 11.09 K/uL (4.8-10.8)
[2017-05-06] MEDS ORDERED: NICOTINE 14 MG/24 HR TDSY TD SCH (09:00)
[2017-05-06] MEDS ORDERED: OMEGA-3 (PURIFIED FISH OIL) 1 GM CAP PO SCH (09:00)
[2017-05-06] MEDS ORDERED: MULTIVITAMIN TAB PO SCH (09:00)
[2017-05-06] MEDS ORDERED: GLUCOSAMINE CHONDROITIN VIT C PO SCH (09:00)
[2017-05-06 09:07] LABS: ANISOCYTOSIS PRESENT; BASO % 0.5 %; BASO ABS # 0.05 K/uL (0-0.2); COMPLETE YES; EOS % 1.1 %; HYPERSEGMENTED POLYS 1+; IG% 0.2 %; LYMPH % 5.8 %; LYMPH ABS # 0.64 K/uL (1.2-3.4); MONO % 10.1 %; NEUT % 82.3 %
[2017-05-06] MEDS: FERROUS SULFATE 325 MG TAB PO SCH ×3 (09:35→16:53)
[2017-05-06] MEDS: IPRATROPIUM BROMIDE/ALBUTEROL respimat INH INH SCH ×4 (09:36→19:31)
[2017-05-06] MEDS ORDERED: PANTOprazole SOD 40 MG TAB PO ONE (09:45)
[2017-05-06] MEDS ORDERED: IRON SUCROSE INJ 300 MG in SODIUM CHLORIDE 0.9% 100ML 100 ML IV SCH (10:00)
[2017-05-06] MEDS ORDERED: PANT40TA PO ×3 (16:29→21:50)
--- NOTE | 2017-05-06 16:32 | Discharge Instructions ---
Discharge Instructions Date of Service May 06, 2017. Admission Reason for Admission: Anemia Discharge Discharge Diagnosis / Problem: Microcytic Anemia Discharge Goals Goal(s): Improve function, Improve disease control, Improve nutritional status , Learn about illness Activity Recommendations Activity Limitations: resume your previous activity . Instructions / Follow-Up Instructions / Follow-Up Freddie Cobos arrived to [facility] with Iron deficiency anemia. As you know from you past experiences with anemia, it leaves you feeling very fatigued and short of breathe. When you are anemic, your blood has decreased ability to carry oxygen throughout your body. Less oxygen leaves you tired. It also put some strain on your organs, you breathing becomes labored and your heart beats faster, which can give you chest pain and possible heart complications. Anemia as severe as yours should be taken very seriously. When you came in you HgB was 5.2. you received 3 units of blood, which brought your levels back up to 8.2. You are at increase risk for worsening of your anemia because of your decreased ability to absorb iron. Discharge recommendations: 1. We recommend that you receive iron infusions here at [facility] every 4 months 2. Increase consumption of meat and green leafy veggies 3. f/u regularly with your primary care physician to check your blood level Current Hospital Diet Patient's current hospital diet: Regular Diet Discharge Diet Recommended Diet: Regular Diet Pending Studies Studies pending at discharge: no Laboratory Results 05/06/17 07:47 Red Blood Count 3.26, Mean Corpuscular Volume 80.7, Mean Corpuscular Hemoglobin 25.2, Mean Corpuscular Hemoglobin Concent 31.2, Mean Platelet Volume 9.0, Neutrophils (%) (Auto) 82.3, Lymphocytes (%) (Auto) 5.8, Monocytes (%) (Auto) 10.1, Eosinophils (%) (Auto) 1.1, Basophils (%) (Auto) 0.5, Neutrophils # (Auto ) 9.14, Lymphocytes # (Auto) 0.64, Monocytes # (Auto) 1.12, Eosinophils # (Auto ) 0.12, Basophils # (Auto) 0.05 05/06/17 07:47 Test 05/05/17 23:10 05/05/17 23:18 05/06/17 00:48 05/06/17 00:57 Hypochromasia PRESENT Tear Drop Cells 1+ Ovalocytes 1+ Absolute Reticulocyte Count 0.06 10^6/uL (0.02-0.10) Percent Reticulocyte Count 2.6 % (0.5-2.0) Prothrombin Time 11.9 SECONDS (9.0-12.0) Prothromb Time International Ratio 1.1 (0.9-1.1) Activated Partial Thromboplast Time 26.7 SECONDS (21.0-31.0) Partial Thromboplastin Ratio 1.0 Magnesium Level 2.1 mg/dl (1.8-2.4) Iron Level 11 mcg/dl (35-150) Total Iron Binding Capacity 688 mcg/dl (250-450) Transferrin 518 mg/dl (200-360) Ferritin 2.3 ng/ml (8.0-388.0) Direct Bilirubin 0.1 mg/dl (0-0.2) Troponin I < 0.015 ng/ml (0-0.045) Thyroid Stimulating Hormone (TSH) 0.484 uIu/ml (0.300-4.500) Bedside Hemoglobin 7.1 g/dl (12.0-16.0) Bedside Hematocrit 21 % (37-47) Bedside Sodium 138 mEq/L (135-144) Bedside Potassium 3.6 mEq/L (3.3-5.0) Bedside Chloride 112 mEq/L (101-112) Bedside Total CO2 14 mEq/l (24-31) Bedside Blood Urea Nitrogen 16 mg/dl (7-18) Bedside Creatinine 1.2 mg/dl (0.6-1.3) Bedside Glucose (other) 108 mg/dl (70-99) Bedside Ionized Calcium (Jam) 1.22 mmol/l (1.12-1.32) Vitamin B12 Level 610 pg/mL (211-911) Folate > 24.00 ng/mL (>5.38) Transferrin % Saturation % (15-50) Test 05/06/17 01:05 05/06/17 07:47 Venous Blood pH 7.34 (7.36-7.41) Venous Blood Partial Pressure CO2 26 mmHg (38.0-50.0) Venous Blood Partial Pressure O2 59 mmHg Venous Blood HCO3 14 mmol/L Venous Blood Oxygen Saturation % Venous Blood Base Excess mEq/L White Blood Count 11.09 K/uL (4.8-10.8) Red Blood Count 3.26 M/uL (4.2-5.4) Hemoglobin 8.2 g/dL (12.0-16.0) Hematocrit 26.3 % (37-47) Mean Corpuscular Volume 80.7 fL (80-100) Mean Corpuscular Hemoglobin 25.2 pg (25-34) Mean Corpuscular Hemoglobin Concent 31.2 g/dl (32-36) Platelet Count 524 K/uL (130-400) Mean Platelet Volume 9.0 fL (7.4-10.4) Neutrophils (%) (Auto) 82.3 % Lymphocytes (%) (Auto) 5.8 % Monocytes (%) (Auto) 10.1 % Eosinophils (%) (Auto) 1.1 % Basophils (%) (Auto) 0.5 % Neutrophils # (Auto) 9.14 K/uL (1.4-6.5) Lymphocytes # (Auto) 0.64 K/uL (1.2-3.4) Monocytes # (Auto) 1.12 K/uL (0.11-0.59) Eosinophils # (Auto) 0.12 K/uL (0-0.5) Basophils # (Auto) 0.05 K/uL (0-0.2) RDW Standard Deviation 64.4 fL (36.4-46.3) RDW Coefficient of Variation 22.1 % (11.5-14.5) Immature Granulocyte % (Auto) 0.2 % Immature Granulocyte # (Auto) 0.02 K/uL (0.00-0.02) Nucleated RBC Absolute Count (auto) 0.08 K/uL (0-0) Nucleated Red Blood Cells % 0.8 % Hypersegmented Polys 1+ Anisocytosis PRESENT Anion Gap 11.0 mmol/L (3-11) Est Creatinine Clear Calc Drug Dose 71.5 ml/min Estimated GFR () 109.3 Estimated GFR (Non- 94.3 BUN/Creatinine Ratio 14.9 (10-20) Calcium Level 8.7 mg/dl (8.5-10.1) Total Bilirubin 0.8 mg/dl (0.2-1) Aspartate Amino Transf (AST/SGOT) 19 U/L (15-37) Alanine Aminotransferase (ALT/SGPT) 16 U/L (12-78) Alkaline Phosphatase 96 U/L (45-117) Total Protein 7.9 gm/dl (6.4-8.2) Albumin 4.0 gm/dl (3.4-5.0) Globulin 3.9 gm/dl (2.5-4.0) Albumin/Globulin Ratio 1.0 (0.9-2) Medical Emergencies . Who to Call and When: Medical Emergencies: If at any time you feel your situation is an emergency, please call 911 immediately. . Non-Emergent Contact Non-Emergency issues call your: Primary Care Provider . . "Provider Documentation" section prepared by Roland Ford. . VTE Core Measure Inpt VTE Proph given/why not?: Corky Dickens, SCD's
--- NOTE | 2017-05-06 18:23 | Family Medicine Progress Note ---
Progress Note Date of Service May 06, 2017. Subjective Pt evaluation today including: conversation w/ patient, physical exam, chart review, lab review 57 yo female admitted for iron def. anemia, PMHx of peptic ulcers and gastrectomy -Pt reports feeling better post transfusions. -She said that he main symptoms have been SOB with exertion. -Pt is not currently SOB. Pt denies trouble getting up to use the restroom. -Pt denies fevers, N/V, but does describe LUQ tenderness. -Pt says that she has a history of malnourishment and decreased appetite. -Pt says that lately she has been unable to keep food down Constitutional: No fever, No chills Respiratory: + dyspnea on exertion, No cough, No sputum, No wheezing, No shortness of breath Cardiovascular: No chest pain, No edema Abdomen: + pain (LUQ), No nausea, No vomiting, No diarrhea Medications Current Inpatient Medications Medications (Trade) Dose Ordered Sig/Shelly Route Start Time Stop Time Status Last Admin Dose Admin Acetaminophen (Tylenol Tab) 650 mg Q4H PRN PO 05/06/17 00:45 06/05/17 00:44 05/06/17 14:00 650 MG Al Hydrox/Mg Hydrox/Simethicone (Maalox Max Susp) 15 ml Q4H PRN PO 05/06/17 00:45 06/05/17 00:44 Magnesium Hydroxide (Milk Of Magnesia Susp) 30 ml Q12H PRN PO 05/06/17 00:45 06/05/17 00:44 Ondansetron HCl (Zofran Inj) 4 mg Q6H PRN IV 05/06/17 00:45 06/05/17 00:44 05/06/17 09:34 4 MG Polyethylene (Miralax Powder Packet) 17 gm DAILY PRN PO 05/06/17 00:45 06/05/17 00:44 Albuterol (Ventolin Hfa Inhaler) 2 puffs Q6H PRN INH 05/06/17 00:45 06/05/17 00:44 Albuterol/ Ipratropium (Combivent Respimat Inh) 1 puffs QID INH 05/06/17 09:00 06/05/17 08:59 05/06/17 16:53 1 PUFFS Multivitamins (Multivitamin Tab) 1 tab DAILY PO 05/06/17 09:00 06/05/17 08:59 05/06/17 09:34 1 TAB Tramadol HCl (Ultram Tab) 50 mg TID PRN PO 05/06/17 00:45 06/05/17 00:44 05/06/17 09:34 50 MG Fish Oil ([place]-3 (Purified Fish Oil) Cap) 1 gm DAILY PO 05/06/17 09:00 06/05/17 08:59 05/06/17 09:35 1 GM Ferrous Sulfate (Feosol Tab) 325 mg TIDM PO 05/06/17 07:30 06/05/17 07:59 05/06/17 16:53 325 MG Nicotine (Nicoderm Cq 14MG Patch) 1 patch QAM TD 05/06/17 09:00 06/05/17 08:59 05/06/17 09:34 1 PATCH Miscellaneous (Remove Nicoderm Patch) 1 ea HS N/A 05/06/17 21:00 06/05/17 20:59 Pantoprazole Sodium (Protonix Tab) 40 mg QAM PO 05/07/17 09:00 06/06/17 08:59 Objective Vital Signs Date Time Temp Pulse Resp B/P (MAP) Pulse Ox O2 Delivery O2 Flow Rate FiO2 05/06/17 17:51 36.5 92 129/57 05/06/17 15:16 37.0 91 19 152/75 (100) 97 Room Air 05/06/17 12:37 36.5 91 16 134/79 (97) 99 Room Air 05/06/17 12:00 98 Room Air 05/06/17 08:00 97 Room Air 05/06/17 07:29 36.8 84 18 119/64 (82) 98 Room Air 05/06/17 05:55 36.7 83 20 164/80 98 05/06/17 04:02 36.8 82 18 172/78 98 05/06/17 04:00 100 Room Air 05/06/17 03:32 36.7 85 16 175/83 100 05/06/17 03:08 36.8 89 20 184/72 100 05/06/17 02:15 36.4 91 18 172/74 100 05/06/17 01:35 36.9 92 18 171/69 99 Room Air 05/06/17 01:11 36.8 93 20 157/87 98 05/06/17 00:56 36.9 96 20 141/77 98 05/06/17 00:42 36.7 97 20 160/95 98 05/06/17 00:30 98 16 167/86 98 05/05/17 23:36 98 05/05/17 23:32 99 16 178/87 99 Room Air 05/05/17 22:49 36.5 115 20 168/61 100 Room Air Physical Exam General Appearance: no apparent distress, + cachetic Eyes: normal inspection, sclerae normal Neck: supple, no adenopathy Respiratory/Chest: chest non-tender, lungs clear, normal breath sounds, no respiratory distress, no accessory muscle use Cardiovascular: regular rate, rhythm, no edema, no gallop, no JVD, + systolic murmur Abdomen: normal bowel sounds, non tender, soft, no organomegaly Neurologic/Psychiatric: alert, oriented x 3 Skin: normal color, warm/dry, no rash Laboratory Results 05/06/17 07:47 Red Blood Count 3.26, Mean Corpuscular Volume 80.7, Mean Corpuscular Hemoglobin 25.2, Mean Corpuscular Hemoglobin Concent 31.2, Mean Platelet Volume 9.0, Neutrophils (%) (Auto) 82.3, Lymphocytes (%) (Auto) 5.8, Monocytes (%) (Auto) 10.1, Eosinophils (%) (Auto) 1.1, Basophils (%) (Auto) 0.5, Neutrophils # (Auto ) 9.14, Lymphocytes # (Auto) 0.64, Monocytes # (Auto) 1.12, Eosinophils # (Auto ) 0.12, Basophils # (Auto) 0.05 05/06/17 07:47 Test 05/05/17 23:10 05/05/17 23:18 05/06/17 00:48 05/06/17 00:57 Hypochromasia PRESENT Tear Drop Cells 1+ Ovalocytes 1+ Absolute Reticulocyte Count 0.06 10^6/uL (0.02-0.10) Percent Reticulocyte Count 2.6 % (0.5-2.0) Prothrombin Time 11.9 SECONDS (9.0-12.0) Prothromb Time International Ratio 1.1 (0.9-1.1) Activated Partial Thromboplast Time 26.7 SECONDS (21.0-31.0) Partial Thromboplastin Ratio 1.0 Magnesium Level 2.1 mg/dl (1.8-2.4) Iron Level 11 mcg/dl (35-150) Total Iron Binding Capacity 688 mcg/dl (250-450) Transferrin 518 mg/dl (200-360) Ferritin 2.3 ng/ml (8.0-388.0) Direct Bilirubin 0.1 mg/dl (0-0.2) Troponin I < 0.015 ng/ml (0-0.045) Thyroid Stimulating Hormone (TSH) 0.484 uIu/ml (0.300-4.500) Bedside Hemoglobin 7.1 g/dl (12.0-16.0) Bedside Hematocrit 21 % (37-47) Bedside Sodium 138 mEq/L (135-144) Bedside Potassium 3.6 mEq/L (3.3-5.0) Bedside Chloride 112 mEq/L (101-112) Bedside Total CO2 14 mEq/l (24-31) Bedside Blood Urea Nitrogen 16 mg/dl (7-18) Bedside Creatinine 1.2 mg/dl (0.6-1.3) Bedside Glucose (other) 108 mg/dl (70-99) Bedside Ionized Calcium (Jam) 1.22 mmol/l (1.12-1.32) Vitamin B12 Level 610 pg/mL (211-911) Folate > 24.00 ng/mL (>5.38) Transferrin % Saturation % (15-50) Test 05/06/17 01:05 05/06/17 07:47 Venous Blood pH 7.34 (7.36-7.41) Venous Blood Partial Pressure CO2 26 mmHg (38.0-50.0) Venous Blood Partial Pressure O2 59 mmHg Venous Blood HCO3 14 mmol/L Venous Blood Oxygen Saturation % Venous Blood Base Excess mEq/L White Blood Count 11.09 K/uL (4.8-10.8) Red Blood Count 3.26 M/uL (4.2-5.4) Hemoglobin 8.2 g/dL (12.0-16.0) Hematocrit 26.3 % (37-47) Mean Corpuscular Volume 80.7 fL (80-100) Mean Corpuscular Hemoglobin 25.2 pg (25-34) Mean Corpuscular Hemoglobin Concent 31.2 g/dl (32-36) Platelet Count 524 K/uL (130-400) Mean Platelet Volume 9.0 fL (7.4-10.4) Neutrophils (%) (Auto) 82.3 % Lymphocytes (%) (Auto) 5.8 % Monocytes (%) (Auto) 10.1 % Eosinophils (%) (Auto) 1.1 % Basophils (%) (Auto) 0.5 % Neutrophils # (Auto) 9.14 K/uL (1.4-6.5) Lymphocytes # (Auto) 0.64 K/uL (1.2-3.4) Monocytes # (Auto) 1.12 K/uL (0.11-0.59) Eosinophils # (Auto) 0.12 K/uL (0-0.5) Basophils # (Auto) 0.05 K/uL (0-0.2) RDW Standard Deviation 64.4 fL (36.4-46.3) RDW Coefficient of Variation 22.1 % (11.5-14.5) Immature Granulocyte % (Auto) 0.2 % Immature Granulocyte # (Auto) 0.02 K/uL (0.00-0.02) Nucleated RBC Absolute Count (auto) 0.08 K/uL (0-0) Nucleated Red Blood Cells % 0.8 % Hypersegmented Polys 1+ Anisocytosis PRESENT Anion Gap 11.0 mmol/L (3-11) Est Creatinine Clear Calc Drug Dose 71.5 ml/min Estimated GFR () 109.3 Estimated GFR (Non- 94.3 BUN/Creatinine Ratio 14.9 (10-20) Calcium Level 8.7 mg/dl (8.5-10.1) Total Bilirubin 0.8 mg/dl (0.2-1) Aspartate Amino Transf (AST/SGOT) 19 U/L (15-37) Alanine Aminotransferase (ALT/SGPT) 16 U/L (12-78) Alkaline Phosphatase 96 U/L (45-117) Total Protein 7.9 gm/dl (6.4-8.2) Albumin 4.0 gm/dl (3.4-5.0) Globulin 3.9 gm/dl (2.5-4.0) Albumin/Globulin Ratio 1.0 (0.9-2) Assessment and Plan Fe deficiency Anemia - Fe studies demonstrated: Fe def anemia - Hgb 5.2, MCV 79, low fe and ferritin, high TIBC and transferrin - Consulted Heme/Onc: discussed IV Fe infusions - Hemoccult negative; focal history of bleeding source - Pt was transfused 3 units over the course of the day - Pt hgb went up to 8.2 after 2 units transfused - Pt advised to f/u with Fe infusions at [facility] 4 times/yr Malabsorption/Malnourishment -Pt reports a poor diet: mostly white rice -PMHx of peptic ulcers and gastrectomy -Pt has history of Fe def. anemia -Pt previous noncompliant with Fe supplementation: -Couldn't tolerate PO Fe -Pt could not make appointments for IV infusions due to work and distance COPD - Continue Ventolin PRN - Combivent QID History of Gastrectomy - Low residue diet - No NSAIDs DVT prophylaxis - SCD, GREGORY - Pharmacological anticoagulation contra-indicated due to low hemoglobin Code Status - Level I Full Code Disposition - Telemetry
--- NOTE | 2017-05-06 20:53 | Discharge Summary ---
Discharge Summary Date of Service May 06, 2017. (Roland Ford M.D.) Discharge Summary Admission Date: May 06, 2017 at 00:48 Discharge Disposition: Home Principal Diagnosis: Fe defiency anemia Immunizations: Have You Had Influenza Vaccine: Yes History of Tetanus Vaccine?: No History of Pneumococcal: Yes Pneumococcal Date: Nov 06, 2012 History of Hepatitis B Vaccine: No (Roland Ford M.D.) Medication Reconciliation New Medications: Pantoprazole (Protonix) 40 Mg Tab 40 MG PO DAILY for 30 Days, #30 TAB Continued Medications: Acetaminophen Tab (Tylenol) 325 Mg Tab 650 MG PO Q6 PRN for Pain Albuterol Hfa (Ventolin Hfa) 200 Puffs/79660 Mcg Aers 2-4 PUFFS INH Q6H, #1 INHALER Jqwmsdptdvn-Ivvdgqwyuhv-Dvu C- (Glucosamine Chondroitin) 1 Tab Tab 500 MG PO DAILY Ipratropium-Albuterol (Combivent Respimat) 1 Aer Aer 1 PUFFS INH QID, #1 INH Multiple Vitamin (Multivitamin) 1 Tab Tab 1 TAB PO DAILY, TAB Thorp-3 Fatty Acids (Fish Oil) 1 Cap Cap 1 CAP PO DAILY Tramadol (Ultram) 50 Mg Tab 50 MG PO TID PRN for Pain Discharge Exam see progress note for history ROS, and Exam (Roland Ford M.D.) denied any bleeding, Review of Systems: Constitutional: No fever, No weakness Respiratory: No shortness of breath Cardiovascular: No chest pain Abdomen: No pain, No GI bleeding Physical Exam: General Appearance: no apparent distress Respiratory/Chest: lungs clear, no respiratory distress Cardiovascular: regular rate, rhythm Abdomen / GI: normal bowel sounds, non tender, soft Neurologic/Psychiatric: alert, oriented x 3 Skin: warm/dry (Karen Cabello M.D.) Hospital Course Hospital course Ms. Javed, 57 yo, F with PMHx of partial gastrectomy was admitted to [facility] on Saturday (05/06) with weakness and generalized malaise x 1 month. Pt was admitted and found have Fe deficiency anemia and treated with 2 blood transfusions bringing her Hgb from 5.2 to 8.2. Later in the afternoon the patient received an additional transfusion. Pt saw hem/onc and agreed to arranging IV Fe infusions 4 times a year at [facility]. Pt was also instructed to follow up with PCP. Presenting symptoms The patient noted that for the past 1 month, she had been walking 1 mile to work and needed to stop 4 times to catch her breath. Prior to 1 month ago, she tolerated this walk without difficulty. Symptoms were progressively getting worse and she noted that she bruises easily. No falls or syncope. Patient also stated that she has had a poor appetite and nausea. Has had occasional vomiting. PMH and treatment history Patient had a gastric bypass surgery 5 years ago at [facility] (Dr. Katz) due to extensive gastric ulceration. Noted that since then she has had persistent hemoglobin issues The patient stated that she had tried iron infusions with Dr. Mitchell 2 years ago, which she states kept her symptoms at bay. She stopped because she lived far from infusion centre and logistically was difficult to do. Pt could not tolerate PO iron supplementation. Problem List: Fe deficiency Anemia - Fe studies demonstrated: Fe def anemia - Hgb 5.2, MCV 79, low fe and ferritin, high TIBC and transferrin - Consulted Heme/Onc: discussed IV Fe infusions - Hemoccult negative; focal history of bleeding source - Pt was transfused 3 units over the course of the day - Pt hgb went up to 8.2 after 2 units transfused - Pt advised to f/u with Fe infusions at [facility] 4 times/yr Malabsorption/Malnourishment -Pt reports a poor diet: mostly white rice -PMHx of peptic ulcers and gastrectomy -Pt has history of Fe def. anemia -Pt previous noncompliant with Fe supplementation: -Couldn't tolerate PO Fe -Pt could not make appointments for IV infusions due to work and distance COPD - Continue Ventolin PRN - Combivent QID History of Gastrectomy - Low residue diet - No NSAIDs DVT prophylaxis - SCD, GREGORY - Pharmacological anticoagulation contra-indicated due to low hemoglobin Code Status - Level I Full Code Disposition - Telemetry Total Time Spent: Less than 30 minutes This includes examination of the patient, discharge planning, medication reconciliation, and communication with other providers. (Roland Ford M.D.) Resident Physician Supervision Note: I was present with Dr. Ford in bedside. I verified the ahumada history and physical, reviewed labs and image studies, discussed the case with the resident and agree with the findings and care plan. Recommended getting 300mgs of IV venofer (to be run over 1.5 hours) every 3 months as outpatient at [facility] instead of 100mgs every month to help with compliance. Total Time Spent: Greater than 30 minutes (35) (Karen Cabello M.D.) Discharge Instructions Please refer to the electronic Patient Visit Report (Discharge Instructions) for additional information. (Roland Ford M.D.) Additional Copies To Shirley Leung C.R.NMikhailP.
[2017-05-06 21:42] LABS: HEMATOCRIT 27.6 % (37-47)
[2017-05-07] MEDS ORDERED: PANTOprazole SOD 40 MG TAB PO SCH (09:00)
== END 2017-05-06 22:30 | disposition home or self-care (01) | DRG 812 ==
LOC: C.EDB 22:42 → C.2T 05-06 00:48 → ENRESERV 05-06 00:59
PROVIDERS: ADMIT Student in an Organized Health Care Education/Training Program; ATTEND Family Medicine
DX: D50.9 Iron deficiency anemia, unspecified (principal); K91.2 Postsurgical malabsorption, not elsewhere classified; E46 Unspecified protein-calorie malnutrition; K27.9 Peptic ulcer, site unspecified, unspecified as acute or chronic, without hemorrhage or perforation; J44.9 Chronic obstructive pulmonary disease, unspecified; F17.200 Nicotine dependence, unspecified, uncomplicated; Z79.899 Other long term (current) drug therapy; Z98.84 Bariatric surgery status

== ENCOUNTER 2017-11-19 10:20 | Observation (INO) | payer OTHER ==
[~2017-11-19] VITALS: Ht 160 cm; Wt 54.4 kg
[2017-11-19] VITALS (18 sets, daily range): BP systolic 127–176; BP diastolic 64–103; PULSE 81–105; TEMP 36.5–37.3; O2SAT 96–99; Ht 160 cm; Wt 54.4 kg
[~2017-11-19 10:20] MED LIST changes: +ACET-1693 PO; -ACET325T96 PO; -ALBUAER2 INH; -CLON0.5T3 PO; -CYAN3INJ IM; -FRRS300 PO; -IPRA1AER2 INH; -ONDA8TAB6 PO; -SERT-234 PO; -SNQ/25 PO; -ZOLE5INJ
[2017-11-19] MEDS ORDERED: LACTATED RINGER'S 1000ML 1,000 ML IV STA (10:29)
[2017-11-19] MEDS ORDERED: HYDROmorphone INJ 0.5 MG/0.5 ML SYR IV PRN (10:45)
[2017-11-19] MEDS ORDERED: ONDANSETRON INJ 2 MG/ML 2 ML VIAL IV STA (10:45)
[2017-11-19] MEDS ORDERED: DiphenhydrAMINE HCL 50 MG/ML VIAL IV STA (11:01)
--- NOTE | 2017-11-19 11:23 | EMERGENCY ROOM VISIT NOTE ---
History Report prepared by Lobito: Pooja Fernandez Under the Supervision of: Dr. Karthikeyan Helms M.D. First contact with patient: 10:28 Chief Complaint: OTHER COMPLAINT Stated Complaint: CHRONIC ANEMIA History of Present Illness The patient is a 57 year old female who presents to the Emergency Room with complaints of persistent weakness for the past 1 week. 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 She complains of dizziness, a headache, abdominal pain, leg pain and nausea. She rates her abdominal pain as a 7/10 in severity. She reports she thinks she needs a blood transfusion due to needing transfusions in the past. The last time she experienced these symptoms was in April 2017 during the [facility], and she needed to remain the hospital. She also admits to some shortness of breath with minimal exertion. The patient denies LOC, fevers, chills, diaphoresis, visual changes, neck pain, chest pain, vomiting, hemoptysis, hematemesis, back pain, melena, hematochezia, urinary symptoms, numbness, lymphadenopathy, rash, or other complaints. 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 A total of ten systems were reviewed and were otherwise negative. Past Medical & Surgical Medical Problems: (1) Anxiety (2) BODY MASS INDEX LESS THAN 19, ADULT (3) CHR BLOOD LOSS ANEMIA (4) CHR PEPTIC ULC W HEM-OBS (5) COPD (chronic obstructive pulmonary disease) (6) Depression (7) Gastrostomy (8) jejunostomy (9) OBSTRUCTIVE CHRONIC BRONCHITIS WITH ACUTE BRONCHITIS (10) PNEUMONIA, ORGANISM NOS (11) Symptomatic anemia Family History Patient reports no known family medical history. Social History Smoking Status: Current Every Day Smoker Alcohol Use: none Drug Use: none Marital Status: Housing Status: lives alone Occupation Status: employed Current/Historical Medications Scheduled Ocewrquhjtl-Wkjuqdjogev-Nca C- (Glucosamine Chondroitin), 500 MG PO DAILY Multiple Vitamin (Multivitamin), 1 TAB PO DAILY Temple-3 Fatty Acids (Fish Oil), 1 CAP PO DAILY Pantoprazole (Protonix), 40 MG PO DAILY Scheduled PRN Acetaminophen Tab (Tylenol), 650 MG PO Q6 PRN for Pain Tramadol (Ultram), 50 MG PO TID PRN for Pain Allergies Coded Allergies: Ibuprofen (Verified Allergy, Severe, stomach ulcers, 11/19/17) Hydromorphone (Verified Allergy, Intermediate, itching, 11/19/17) Physical Exam Vital Signs Date Time Temp Pulse Resp B/P (MAP) Pulse Ox O2 Delivery O2 Flow Rate FiO2 11/19/17 11:50 91 14 99 Room Air 11/19/17 11:30 137/63 11/19/17 11:20 97 15 96 Room Air 11/19/17 11:07 83 18 141/64 100 Room Air 11/19/17 11:03 88 11/19/17 11:02 141/64 11/19/17 10:48 100 Room Air 11/19/17 10:22 36.8 103 18 183/69 100 Room Air Physical Exam GENERAL: Awake, alert, well-appearing, in no distress HENT: Normocephalic, atraumatic. Oropharynx unremarkable. EYES: Pale conjunctiva. Sclera non-icteric. NECK: Supple. No nuchal rigidity. FROM. No masses. RESPIRATORY: Clear to auscultation. No wheezes. CARDIAC: Normal rate. Normal rhythm. No murmurs. No rubs. Extremities warm and well perfused. Pulses equal. No JVD. GI: Abdomen is soft, mildly distended and diffusely tender. No rebound or guarding. No masses. RECTAL: Deferred. MUSCULOSKELETAL: Atraumatic. Chest examination reveals no tenderness. The back is symmetrical on inspection without obvious abnormality. There is no CVA tenderness to palpation. No joint edema. LOWER EXTREMITIES: Calves are equal size bilaterally and non-tender. No edema. No discoloration. NEURO: Normal sensorium. No sensory or motor deficits noted. SKIN: No rash or jaundice noted. Medical Decision & Procedures ER Provider Diagnostic Interpretation: Radiology results as stated below per my review and radiologist interpretation: PA CHEST WITH ABDOMINAL SERIES CLINICAL HISTORY: GI bleeding. FINDINGS: A PA chest radiograph is compared to study dated 11/01/2012. The cardiomediastinal silhouette is unremarkable. There is atherosclerotic calcification of the thoracic aorta. Chronic interstitial thickening is similar to previous. The lungs and pleural spaces are clear. No pneumothorax is seen. The skeletal structures are osteopenic. The bony thorax is grossly intact. Supine and erect abdominal radiographs are correlated with abdominal CT dated 10/27/2012. There is a nonobstructed abdominal bowel gas pattern. Moderate colonic fecal retention is observed. No evidence of intraperitoneal free air is seen. Suture material projects over the left upper quadrant. There are no abnormal abdominal calcifications. The lumbosacral spine and bony pelvis appear intact. There is mild lumbar sacral spondylosis. IMPRESSION: 1. No active disease in the chest. 2. Nonobstructed abdominal bowel gas pattern noting moderate constipation. Electronically signed by: Fran Castro M.D. 11/19/2017 11:49 AM Laboratory Results 11/19/17 10:44 Red Blood Count 2.76, Mean Corpuscular Volume 78.6, Mean Corpuscular Hemoglobin 21.4, Mean Corpuscular Hemoglobin Concent 27.2, Mean Platelet Volume 10.0, Neutrophils (%) (Auto) 66.6, Lymphocytes (%) (Auto) 15.8, Monocytes (%) (Auto) 12.5, Eosinophils (%) (Auto) 3.6, Basophils (%) (Auto) 1.3, Neutrophils # (Auto ) 3.72, Lymphocytes # (Auto) 0.88, Monocytes # (Auto) 0.70, Eosinophils # (Auto ) 0.20, Basophils # (Auto) 0.07 11/19/17 10:44 Test 11/19/17 10:44 White Blood Count 5.58 K/uL (4.8-10.8) Red Blood Count 2.76 M/uL (4.2-5.4) Hemoglobin 5.9 g/dL (12.0-16.0) Hematocrit 21.7 % (37-47) Mean Corpuscular Volume 78.6 fL (80-100) Mean Corpuscular Hemoglobin 21.4 pg (25-34) Mean Corpuscular Hemoglobin Concent 27.2 g/dl (32-36) Platelet Count 407 K/uL (130-400) Mean Platelet Volume 10.0 fL (7.4-10.4) Neutrophils (%) (Auto) 66.6 % Lymphocytes (%) (Auto) 15.8 % Monocytes (%) (Auto) 12.5 % Eosinophils (%) (Auto) 3.6 % Basophils (%) (Auto) 1.3 % Neutrophils # (Auto) 3.72 K/uL (1.4-6.5) Lymphocytes # (Auto) 0.88 K/uL (1.2-3.4) Monocytes # (Auto) 0.70 K/uL (0.11-0.59) Eosinophils # (Auto) 0.20 K/uL (0-0.5) Basophils # (Auto) 0.07 K/uL (0-0.2) RDW Standard Deviation 63.1 fL (36.4-46.3) RDW Coefficient of Variation 22.8 % (11.5-14.5) Immature Granulocyte % (Auto) 0.2 % Immature Granulocyte # (Auto) 0.01 K/uL (0.00-0.02) Giant Platelets 1+ Hypochromasia PRESENT Anisocytosis PRESENT Microcytosis PRESENT Prothrombin Time 10.5 SECONDS (9.0-12.0) Prothromb Time International Ratio 1.0 (0.9-1.1) Activated Partial Thromboplast Time 22.8 SECONDS (21.0-31.0) Partial Thromboplastin Ratio 0.9 Urine Color YELLOW Urine Appearance CLOUDY (CLEAR) Urine pH 5.5 (4.5-7.5) Urine Specific [place] 1.023 (1.000-1.030) Urine Protein NEG (NEG) Urine Glucose (UA) NEG (NEG) Urine Ketones NEG (NEG) Urine Occult Blood NEG (NEG) Urine Nitrite POS (NEG) Urine Bilirubin NEG (NEG) Urine Urobilinogen NEG (NEG) Urine Leukocyte Esterase MODERATE (NEG) Urine WBC (Auto) >30 /hpf (0-5) Urine RBC (Auto) 0-4 /hpf (0-4) Urine Hyaline Casts (Auto) 0 /lpf (0-5) Urine Epithelial Cells (Auto) 5-10 /lpf (0-5) Urine Bacteria (Auto) 4+ (NEG) Anion Gap 9.0 mmol/L (3-11) Est Creatinine Clear Calc Drug Dose 86.2 ml/min Estimated GFR () 118.3 Estimated GFR (Non- 102.1 BUN/Creatinine Ratio 11.5 (10-20) Calcium Level 8.7 mg/dl (8.5-10.1) Total Bilirubin 0.2 mg/dl (0.2-1) Direct Bilirubin < 0.1 mg/dl (0-0.2) Aspartate Amino Transf (AST/SGOT) 14 U/L (15-37) Alanine Aminotransferase (ALT/SGPT) 15 U/L (12-78) Alkaline Phosphatase 122 U/L (45-117) Total Protein 7.4 gm/dl (6.4-8.2) Albumin 3.6 gm/dl (3.4-5.0) Lipase 224 U/L (73-393) Laboratory results reviewed by me Medications Administered Medications (Trade) Dose Ordered Sig/Shelly Route Start Time Stop Time Status Last Admin Dose Admin Lactated Ringer's 1,000 ml @ 200 mls/hr Q5H STAT IV 11/19/17 10:29 11/19/17 15:28 11/19/17 10:54 200 MLS/HR Ondansetron HCl (Zofran Inj) 4 mg NOW STAT IV 11/19/17 10:45 11/19/17 10:47 DC 11/19/17 10:55 4 MG Hydromorphone HCl (Dilaudid Inj) 0.5 mg Q30M PRN IV 11/19/17 10:45 12/03/17 10:44 11/19/17 10:59 0.5 MG Diphenhydramine HCl (Benadryl Inj) 25 mg NOW STAT IV 11/19/17 11:01 11/19/17 11:02 DC 11/19/17 11:24 25 MG Ceftriaxone Sodium (Rocephin Inj) 1 gm NOW STAT IV 11/19/17 11:51 11/19/17 11:52 DC 11/19/17 12:03 1 GM Tramadol HCl (Ultram Tab) 50 mg NOW STAT PO 11/19/17 11:51 11/19/17 11:53 DC 11/19/17 12:03 50 MG ED Course 1029: Lactated Ringers 1000 ml @ 200 mls/hr IV. 1041: The patient was evaluated in room C6. A complete history and physical exam was performed. 1045: Dilaudid 0.5 mg IV, Zofran 4 mg IV. 1100: Nursing informed me the patient became itchy after the Dilaudid. I will order Benadryl. 1101: Benadryl 25 mg IV. 1140: Nursing informed me the patient has a Hemoglobin of 5. 1151: Ultram 50 mg PO, Rocephin 1 gm IV. 1200: I updated the patient on my recommendation she remain in the hospital for further evaluation and management and she verbalized complete understanding and agreement. 1210: I discussed the patients case with Dr. Quinn [facility] Hospitalist. The patient will be further evaluated. Medical Decision Triage Nursing notes reviewed. The patient's presentation and history were concerning for possible anemia, abdominal pain and dyspnea. Etiologies such as exacerbation of chronic anemia, diverticulosis, AVM, coagulopathy, colitis, inflammatory bowel disease, peptic ulcer disease, cardiac sources, pneumonia, as well as others were entertained. The patient was evaluated. She has a long history of anemia issues and feels that this is similar. She had an IV established. Blood work was obtained. She was given Zofran, fluid hydration, and a dose of IV Dilaudid. She denied having any allergies to any pain medication. She was instructed not to take ibuprofen in the past but there was no true allergy to this. She was given a dose of Dilaudid and felt that she afterwards. She was given a dose of Benadryl. Urinalysis obtained. The patient was found to be profoundly anemic with a hemoglobin of 5.9. She was consented for packed red blood cell transfusion. 3 units of packed red blood cells were ordered. The patient was also found to have urinalysis. IV Rocephin ordered. Consultation was made with internal medicine. The patient was evaluated in the ER for further management. Medication Reconcilliation Current Medication List: was personally reviewed by me Blood Pressure Screening Patient's blood pressure: Elevated blood pressure Blood pressure disposition: Elevated BP felt to be situational Consults Time Called: 1200 Consulting Physician: Dr. Quinn [facility] Hospitalist Returned Call: 1204 I discussed the patients case with Dr. Quinn [facility] Hospitalist. The patient will be further evaluated. Impression Primary Impression: Severe anemia Additional Impression: UTI (urinary tract infection) Scribe Attestation The scribe's documentation has been prepared under my direction and personally reviewed by me in its entirety. I confirm that the note above accurately reflects all work, treatment, procedures, and medical decision making performed by me. Departure Information Dispostion Being Evaluated By Hospitalist Referrals No Doctor, Assigned (PCP) Patient Instructions My [facility] Problem Qualifiers
[2017-11-19 11:31] LABS: PTT PATIENT 22.8 SECONDS (21.0-31.0)
[2017-11-19 11:35] LABS: ALBUMIN 3.6 gm/dl (3.4-5.0); ALT/SGPT 15 U/L (12-78); BLOOD UREA NITROGEN 7 mg/dl (7-18); CALCIUM 8.7 mg/dl (8.5-10.1); CARBON DIOXIDE 21 mmol/L (21-32); CREATININE 0.61 mg/dl (0.60-1.20); GLUCOSE 95 mg/dl (70-99); LIPASE 224 U/L (73-393); POTASSIUM 3.5 mmol/L (3.5-5.1); SODIUM 141 mmol/L (136-145)
[2017-11-19 11:38] LABS: ALKALINE PHOSPHATASE 122 U/L (45-117); AST/SGOT 14 U/L (15-37); TOTAL PROTEIN 7.4 gm/dl (6.4-8.2)
[2017-11-19 11:40] LABS: HEMATOCRIT 21.7 % (37-47); HEMOGLOBIN 5.9 g/dL (12.0-16.0); MEAN CELL VOLUME 78.6 fL (80-100); MEAN CORPUSCULAR HEMOGLOBIN 21.4 pg (25-34); MEAN CORPUSCULAR HGB CONC 27.2 g/dl (32-36); PLATELET COUNT 407 K/uL (130-400); RED CELL DISTRIBUTION WIDTH CV 22.8 % (11.5-14.5); RED CELL DISTRIBUTION WIDTH SD 63.1 fL (36.4-46.3); WHITE BLOOD COUNT 5.58 K/uL (4.8-10.8)
--- NOTE | 2017-11-19 11:50 | DIAGNOSTIC IMAGING REPORT ---
PA CHEST WITH ABDOMINAL SERIES CLINICAL HISTORY: GI bleeding. FINDINGS: A PA chest radiograph is compared to study dated 11/01/2012. The cardiomediastinal silhouette is unremarkable. There is atherosclerotic calcification of the thoracic aorta. Chronic interstitial thickening is similar to previous. The lungs and pleural spaces are clear. No pneumothorax is seen. The skeletal structures are osteopenic. The bony thorax is grossly intact. Supine and erect abdominal radiographs are correlated with abdominal CT dated 10/27/2012. There is a nonobstructed abdominal bowel gas pattern. Moderate colonic fecal retention is observed. No evidence of intraperitoneal free air is seen. Suture material projects over the left upper quadrant. There are no abnormal abdominal calcifications. The lumbosacral spine and bony pelvis appear intact. There is mild lumbar sacral spondylosis. IMPRESSION: 1. No active disease in the chest. 2. Nonobstructed abdominal bowel gas pattern noting moderate constipation. Electronically signed by: Fran Castro M.D. 11/19/2017 11:49 AM Dictated Date/Time: 11/19/2017 11:47 AM
[2017-11-19] MEDS ORDERED: CEFTRIAXONE SOD INJ 1 GM ADDVIAL IV STA (11:51)
[2017-11-19] MEDS ORDERED: TRAMADOL HCL 50 MG TAB PO STA (11:51)
[2017-11-19 11:52] LABS: BASO % 1.3 %; BASO ABS # 0.07 K/uL (0-0.2); EOS % 3.6 %; IG# 0.01 K/uL (0.00-0.02); LYMPH % 15.8 %; LYMPH ABS # 0.88 K/uL (1.2-3.4); MONO % 12.5 %; NEUT % 66.6 %; NEUT ABS # 3.72 K/uL (1.4-6.5)
[2017-11-19] MEDS ORDERED: MAGNESIUM HYDROXIDE SUSP 30 ML UDC PO PRN (12:30)
[2017-11-19] MEDS ORDERED: POLYETHYLENE (MIRALAX) 17 GM PACK PO PRN (12:30)
[2017-11-19] MEDS ORDERED: ONDANSETRON INJ 2 MG/ML 2 ML VIAL IV PRN (12:30)
[2017-11-19] MEDS ORDERED: TRAMADOL HCL 50 MG TAB PO PRN (12:30)
[2017-11-19] MEDS ORDERED: ACETAMINOPHEN 325 MG TAB PO PRN (12:30)
[2017-11-19] MEDS ORDERED: ZOLPIDEM TARTRATE 5 MG TAB PO PRN (12:30)
[2017-11-19] MEDS ORDERED: ALUMINUM/MAGNESIUM/SIMETH (MAALOX MAX) 30 ML UDC PO PRN (12:30)
--- NOTE | 2017-11-19 12:49 | History and Physical ---
History & Physical Date & Time of Service: Nov 19, 2017 at 12:37 Chief Complaint: Chronic Anemia Primary Care Physician: No Doctor, Assigned History of Present Illness Source: patient 57 y/o F Hx partial gastrectomy 2011 leading to chronic, iron-deficient anemai. She occasionally requires transfusions. She presents with a CEBALLOS, LE muscle cramps, lower abdominal pain and exertional dyspnea. She recognized her symptoms as anemia-related as she has had this in the past. The pt had been scheduled for iron infusions but has been unable to comply due to lack of transportation. She denies any overt signs of acute blood loss. Her UA is (+). Past Medical/Surgical History 1) COPD 2) Chronic iron-deficient anemia 3) Partial gastrectomy/jejunostomy 2011 4) PUD 5) Depression/anxiety Family History Patient reports no known family medical history. Social History Smokes up to a pack daily Smoking Status: Current Every Day Smoker Drug Use: none Marital Status: Housing status: lives alone Occupational Status: employed Immunizations History of Influenza Vaccine: Yes History of Tetanus Vaccine?: No History of Pneumococcal: Yes Pneumococcal Date: Nov 06, 2012 History of Hepatitis B Vaccine: No Allergies Coded Allergies: Ibuprofen (Verified Allergy, Severe, stomach ulcers, 11/19/17) Hydromorphone (Verified Allergy, Intermediate, itching, 11/19/17) Home Medications Scheduled Cuxdutuqvdv-Pjotguwwlhw-Pve C- (Glucosamine Chondroitin), 500 MG PO DAILY Multiple Vitamin (Multivitamin), 1 TAB PO DAILY [place]-3 Fatty Acids (Fish Oil), 1 CAP PO DAILY Pantoprazole (Protonix), 40 MG PO DAILY Scheduled PRN Acetaminophen Tab (Tylenol), 650 MG PO Q6 PRN for Pain Tramadol (Ultram), 50 MG PO TID PRN for Pain Review of Systems Constitutional: + weakness, No fever, No chills, No sweats Eyes: No worsening of vision ENT: No hearing loss, No nasal symptoms Respiratory: + dyspnea on exertion, No cough, No sputum, No wheezing Cardiovascular: No chest pain, No orthopnea, No PND Abdomen: + pain, No nausea, No vomiting Musculoskeletal: + muscle pain Genitourinary - Female: No dysuria, No urinary frequency, No urinary urgency Neurologic: + weakness, No memory loss, No paralysis Psychiatric: + depression symptoms Endocrine: + fatigue Integumentary: No rash Allergic / Immunologic: No environmental allergies Physical Exam Vital Signs Date Time Temp Pulse Resp B/P (MAP) Pulse Ox O2 Delivery O2 Flow Rate FiO2 11/19/17 11:50 91 14 99 Room Air 11/19/17 11:30 137/63 11/19/17 11:20 97 15 96 Room Air 11/19/17 11:07 83 18 141/64 100 Room Air 11/19/17 11:03 88 11/19/17 11:02 141/64 11/19/17 10:48 100 Room Air 11/19/17 10:22 36.8 103 18 183/69 100 Room Air General Appearance: WD/WN, no apparent distress, + pertinent finding (Irritable , middle-aged F in no distress) Head: normocephalic Eyes: normal inspection ENT: normal ENT inspection, pharynx normal Neck: supple, no JVD Respiratory/Chest: chest non-tender, lungs clear, normal breath sounds Cardiovascular: regular rate, rhythm, no edema, no gallop Abdomen/GI: normal bowel sounds, non tender, soft Back: normal inspection, no CVA tenderness Extremities/Musculoskelatal: normal inspection, no calf tenderness, normal capillary refill Neurologic/Psych: conductor freight II-XII nml as tested, no motor/sensory deficits, alert, oriented x 3 Skin: + pallor Diagnostics Laboratory Results Results Past 24 Hours Test 11/19/17 10:44 Range/Units White Blood Count 5.58 4.8-10.8 K/uL Red Blood Count 2.76 4.2-5.4 M/uL Hemoglobin 5.9 12.0-16.0 g/dL Hematocrit 21.7 37-47 % Mean Corpuscular Volume 78.6 80-100 fL Mean Corpuscular Hemoglobin 21.4 25-34 pg Mean Corpuscular Hemoglobin Concent 27.2 32-36 g/dl Platelet Count 407 130-400 K/uL Mean Platelet Volume 10.0 7.4-10.4 fL Neutrophils (%) (Auto) 66.6 % Lymphocytes (%) (Auto) 15.8 % Monocytes (%) (Auto) 12.5 % Eosinophils (%) (Auto) 3.6 % Basophils (%) (Auto) 1.3 % Neutrophils # (Auto) 3.72 1.4-6.5 K/uL Lymphocytes # (Auto) 0.88 1.2-3.4 K/uL Monocytes # (Auto) 0.70 0.11-0.59 K/uL Eosinophils # (Auto) 0.20 0-0.5 K/uL Basophils # (Auto) 0.07 0-0.2 K/uL RDW Standard Deviation 63.1 36.4-46.3 fL RDW Coefficient of Variation 22.8 11.5-14.5 % Immature Granulocyte % (Auto) 0.2 % Immature Granulocyte # (Auto) 0.01 0.00-0.02 K/uL Giant Platelets 1+ Hypochromasia PRESENT Anisocytosis PRESENT Microcytosis PRESENT Prothrombin Time 10.5 9.0-12.0 SECONDS Prothromb Time International Ratio 1.0 0.9-1.1 Activated Partial Thromboplast Time 22.8 21.0-31.0 SECONDS Partial Thromboplastin Ratio 0.9 Urine Color YELLOW Urine Appearance CLOUDY CLEAR Urine pH 5.5 4.5-7.5 Urine Specific [place] 1.023 1.000-1.030 Urine Protein NEG NEG Urine Glucose (UA) NEG NEG Urine Ketones NEG NEG Urine Occult Blood NEG NEG Urine Nitrite POS NEG Urine Bilirubin NEG NEG Urine Urobilinogen NEG NEG Urine Leukocyte Esterase MODERATE NEG Urine WBC (Auto) >30 0-5 /hpf Urine RBC (Auto) 0-4 0-4 /hpf Urine Hyaline Casts (Auto) 0 0-5 /lpf Urine Epithelial Cells (Auto) 5-10 0-5 /lpf Urine Bacteria (Auto) 4+ NEG Sodium Level 141 136-145 mmol/L Potassium Level 3.5 3.5-5.1 mmol/L Chloride Level 110 98-107 mmol/L Carbon Dioxide Level 21 21-32 mmol/L Anion Gap 9.0 3-11 mmol/L Blood Urea Nitrogen 7 7-18 mg/dl Creatinine 0.61 0.60-1.20 mg/dl Est Creatinine Clear Calc Drug Dose 86.2 ml/min Estimated GFR () 118.3 Estimated GFR (Non- 102.1 BUN/Creatinine Ratio 11.5 10-20 Random Glucose 95 70-99 mg/dl Calcium Level 8.7 8.5-10.1 mg/dl Total Bilirubin 0.2 0.2-1 mg/dl Direct Bilirubin < 0.1 0-0.2 mg/dl Aspartate Amino Transf (AST/SGOT) 14 15-37 U/L Alanine Aminotransferase (ALT/SGPT) 15 12-78 U/L Alkaline Phosphatase 122 45-117 U/L Total Protein 7.4 6.4-8.2 gm/dl Albumin 3.6 3.4-5.0 gm/dl Lipase 224 73-393 U/L Impression Assessment and Plan 57 y/o F Hx COPD, partial gastrectomy 2011 leading to chronic, iron-deficient anemia. She occasionally requires transfusions. She presents with a CEBALLOS, LE muscle cramps, lower abdominal pain and exertional dyspnea. She recognized her symptoms as anemia-related as she has had this in the past. The pt had been scheduled for iron infusions but has been unable to comply due to lack of transportation. She denies any overt signs of acute blood loss. Her UA is (+). 1) Symptomatic anemia. The pt has been assigned to observation for transfusion of 3 U PRBCs. We will reassess her for DC following a repeat HB in the afternoon, upon completion of her transfusions. 2) UTI - She was provided with a dose of Ceftriaxone in the ER and can likely be DCd with Ceftin. 3) COPD - smoker - advised on cessation - does not appear interested. She does not currently require treatment for COPD. Full code - SCDs Total time for this admit including review of labs, meds, imaging, records - discussion with pt and ER attending - 35 min Resuscitation Status VTE Prophylaxis Will order VTE Prophylaxis: Yes
[2017-11-19] MEDS ORDERED: IV FLUIDS COMPLETED PRN (13:45)
[2017-11-19] MEDS ORDERED: NICOTINE 14 MG/24 HR TDSY TD SCH (16:15)
[2017-11-19] MEDS ORDERED: NURSING VERBAL MED ORDER ONE (18:15)
[2017-11-19] MEDS ORDERED: CEFU250T15 PO (18:19)
--- NOTE | 2017-11-19 18:23 | Discharge Instructions ---
Discharge Instructions Date of Service Nov 19, 2017. Admission Reason for Admission: Symptomatic Anemia Discharge Discharge Diagnosis / Problem: Symptomatic anemia Discharge Goals Goal(s): Decrease discomfort, Improve disease control, Diagnostic testing, Therapeutic intervention, Prevent Disease Progression Activity Recommendations Activity Limitations: resume your previous activity . Instructions / Follow-Up Instructions / Follow-Up You were admitted to [facility] due to anemia (low blood count). You were transfused with 3 units of blood. You are stable to be discharged home. It is very important you continue to get your scheduled iron infusions to avoid further anemic episodes. Continue all regular home medications as prescribed Urinary tract infection: Ceftin 250 mg twice daily until prescription is completed- start this medication tomorrow morning (11/20/17). FOLLOW-UPS: Please follow-up with your PCP within 5-7 days Please follow-up/keep all of your subspecialty appointments Current Hospital Diet Patient's current hospital diet: Regular Diet Discharge Diet Recommended Diet: Regular Diet Pending Studies Studies pending at discharge: no Medical Emergencies . Who to Call and When: Medical Emergencies: If at any time you feel your situation is an emergency, please call 911 immediately. . Non-Emergent Contact Non-Emergency issues call your: Primary Care Provider Call Non-Emergent contact if: you have a fever, you have any medication questions . . "Provider Documentation" section prepared by Marguerite Simmons. .
--- NOTE | 2017-11-19 18:31 | Discharge Summary ---
Discharge Summary Date of Service Nov 19, 2017. Discharge Summary Admission Date: Nov 19, 2017 at 12:22 Discharge Date: Nov 19, 2017 Discharge Disposition: Home Principal Diagnosis: Symptomatic anemia Problems/Secondary Diagnoses: COPD UTI partial gastrectomy chronic iron deficient anemia tobacco abuse GERD Immunizations: Have You Had Influenza Vaccine: Yes History of Tetanus Vaccine?: No History of Pneumococcal: Yes Pneumococcal Date: Nov 06, 2012 History of Hepatitis B Vaccine: No Procedures: PA CHEST WITH ABDOMINAL SERIES CLINICAL HISTORY: GI bleeding. FINDINGS: A PA chest radiograph is compared to study dated 11/01/2012. The cardiomediastinal silhouette is unremarkable. There is atherosclerotic calcification of the thoracic aorta. Chronic interstitial thickening is similar to previous. The lungs and pleural spaces are clear. No pneumothorax is seen. The skeletal structures are osteopenic. The bony thorax is grossly intact. Supine and erect abdominal radiographs are correlated with abdominal CT dated 10/27/2012. There is a nonobstructed abdominal bowel gas pattern. Moderate colonic fecal retention is observed. No evidence of intraperitoneal free air is seen. Suture material projects over the left upper quadrant. There are no abnormal abdominal calcifications. The lumbosacral spine and bony pelvis appear intact. There is mild lumbar sacral spondylosis. IMPRESSION: 1. No active disease in the chest. 2. Nonobstructed abdominal bowel gas pattern noting moderate constipation. Electronically signed by: Fran Castro M.D. 11/19/2017 11:49 AM Dictated Date/Time: 11/19/2017 11:47 AM The status of this report is Signed. Draft = Not yet reviewed or approved by Radiologist. Signed = Reviewed and approved by Radiologist. Medication Reconciliation New Medications: Cefuroxime Axetil (Ceftin) 250 Mg Tab 250 MG PO BID for 5 Days, #10 TAB Continued Medications: Acetaminophen Tab (Tylenol) 325 Mg Tab 650 MG PO Q6 PRN for Pain Kidafpkqlnt-Xltohhwgytg-Tga C- (Glucosamine Chondroitin) 1 Tab Tab 500 MG PO DAILY Multiple Vitamin (Multivitamin) 1 Tab Tab 1 TAB PO DAILY, TAB [place]-3 Fatty Acids (Fish Oil) 1 Cap Cap 1 CAP PO DAILY Pantoprazole (Protonix) 40 Mg Tab 40 MG PO DAILY for 30 Days, #30 TAB Tramadol (Ultram) 50 Mg Tab 50 MG PO TID PRN for Pain Discharge Exam Refer to Dr. uQinn's H&P Hospital Course 57 y/o F Hx COPD, partial gastrectomy 2011 leading to chronic, iron-deficient anemia. She occasionally requires transfusions. She presents with a CEBALLOS, LE muscle cramps, lower abdominal pain and exertional dyspnea. She recognized her symptoms as anemia-related as she has had this in the past. The pt had been scheduled for iron infusions but has been unable to comply due to lack of transportation. She denies any overt signs of acute blood loss. Her UA is (+). Symptomatic anemia w/ h/o of chronic iron deficient anemia: - Admitted to med/surg - Transfused 3 units PRBCs - Continue outpatient iron infusions UTI: - IV Rocephin x1 in ED - Discharge w/ Ceftin 250 mg BID x5 days Tobacco abuse, COPD: - Nicotine patch provided - Smoking cessation counselling GERD: Protonix DVT prophylaxis: Avoid chemical anticoagulation due to anemia Code status: LEVEL I, FULL Dispo: Discharge to home Total Time Spent: Greater than 30 minutes This includes examination of the patient, discharge planning, medication reconciliation, and communication with other providers. Discharge Instructions Please refer to the electronic Patient Visit Report (Discharge Instructions) for additional information. Follow-Up Please follow-up with your PCP within 5-7 days Continue scheduled iron infusions Please follow-up/keep all of your subspecialty appointments
[2017-11-20] MEDS ORDERED: PANTOprazole SOD 40 MG TAB PO SCH (08:00)
[2017-11-20] MEDS ORDERED: NICOTINE 14 MG/24 HR TDSY TD SCH (08:00)
== END 2017-11-19 22:35 | disposition home or self-care (01) ==
LOC: C.EDB 10:21 → C.4E 12:22 → ENRESERV 12:56
PROVIDERS: ADMIT Internal Medicine; ATTEND Internal Medicine
DX: D50.9 Iron deficiency anemia, unspecified (principal); J44.9 Chronic obstructive pulmonary disease, unspecified; N39.0 Urinary tract infection, site not specified; Z90.3 Acquired absence of stomach [part of]; F17.200 Nicotine dependence, unspecified, uncomplicated; K21.9 Gastro-esophageal reflux disease without esophagitis; K27.9 Peptic ulcer, site unspecified, unspecified as acute or chronic, without hemorrhage or perforation; Z88.6 Allergy status to analgesic agent; Z79.899 Other long term (current) drug therapy